=== PATIENT | male | born 1975 | race Two or more races ===

== ENCOUNTER 2016-11-02 10:54 | Day surgery (SDC) | payer OTHER ==
[2016-10-30 12:59] VITALS: BMI 33.2
[2016-11-02 12:31] VITALS: TEMP 98.7
[2016-11-02] MEDS ORDERED: LEVOFLOXACIN 500 MG IVPB 100 ML IVPB ONE (16:21)
[2016-11-02] MEDS ORDERED: MIDAZOLAM HCL 2 MG/2 ML SINGLE DOSE VIAL ONE (16:22)
[2016-11-02] MEDS ORDERED: LEVOFLOXACIN 500 MG PREMIX BAG IVPB ONE (16:30)
--- NOTE | 2016-11-02 17:41 | OP ---
Operative Note - Note: Operative Date: 11/02/16 Pre-Operative Diagnosis: right renal stone Operation: right eswl Findings: 8 mm right lower pole stone Post-Operative Diagnosis: Same as Pre-op Surgeon: Mynor Borrego Anesthesia: General Operative Report Dictated: Yes
[2016-11-02 18:22] VITALS: BP 131/80; PULSE 57
--- NOTE | 2016-11-03 15:48 | OP ---
DATE OF OPERATION: 11/02/2016 PREOPERATIVE DIAGNOSIS: Right renal stone. POSTOPERATIVE DIAGNOSIS: Right renal stone. PROCEDURE: Right extracorporeal shock-wave lithotripsy. ATTENDING: Harry Sanchez MD ANESTHESIA: General. OPERATION: The patient was brought in the operating room, placed in supine position on the operating room table. Ultrasonography and fluoroscopy were performed. An 8-mm right lower pole renal stone was identified. General anesthesia was then administered as well as Levaquin intravenously with 500 mg administered. At this point, extracorporeal shock-wave lithotripsy was performed under real-time ultrasonography and fluoroscopy; 2500 impulses at 20 joules of power were administered to the stone, with excellent fragmentation. No complications were noted. The disposition of the patient was to recovery room. HARRY SANCHEZ M.D. [id number]
== END 2016-11-02 18:20 | disposition home or self-care (01) ==
LOC: JASU-SURG 10:54
PROVIDERS: ATTEND Urology
PROC: 0TF3XZZ Fragmentation in Right Kidney Pelvis, External Approach (ICD-10-PCS; principal; 2016-11-02 14:45)
DX: N20.0 Calculus of kidney (principal)

== ENCOUNTER 2017-04-05 09:55 | Day surgery (SDC) | payer OTHER ==
[2017-02-17 14:54] VITALS: BMI 33.2
[~2017-04-05 09:55] MED LIST: LEVOFLOXACIN 500 MG PREMIX BAG IVPB ONE
[2017-04-05] MEDS ORDERED: DEXAMETHASONE SOD PHOSPHATE 4 MG/1 ML VIAL ONE (12:41)
[2017-04-05] MEDS ORDERED: MIDAZOLAM HCL 2 MG/2 ML SINGLE DOSE VIAL ONE (12:42)
[2017-04-05] MEDS ORDERED: LEVOFLOXACIN 500 MG PREMIX BAG IVPB ONE ×2 (13:10→13:20)
[2017-04-05] MEDS ORDERED: LEVOFLOXACIN 500 MG IVPB 100 ML IVPB ONE (13:22)
--- NOTE | 2017-04-05 13:50 | OP ---
Operative Note - Note: Operative Date: 04/05/17 Pre-Operative Diagnosis: left renal stone Operation: left eswl Findings: 4.5 mm left renal stone (lower pole) Post-Operative Diagnosis: Same as Pre-op Surgeon: Mynor Borrego Anesthesia: General, Fractional
[2017-04-05] MEDS ORDERED: oxyCODONE HCL 5 MG TABLET PO PRN (14:13)
[2017-04-05] MEDS ORDERED: ONDANSETRON 4 MG/2 ML VIAL IVPUSH PRN (14:13)
[2017-04-05] MEDS ORDERED: LACTATED RINGERS SOLUTION 1,000 ML IV SCH (14:15)
[2017-04-05 15:59] VITALS: TEMP 97.7
[2017-04-05 17:08] VITALS: BP 130/88; PULSE 72
--- NOTE | 2017-04-06 08:06 | OP ---
DATE OF OPERATION: 04/05/2017 PREOPERATIVE DIAGNOSIS: Left renal stone. POSTOPERATIVE DIAGNOSIS: Left renal stone. PROCEDURE: Left extracorporeal shock wave lithotripsy. ATTENDING: Harry Sanchez MD ANESTHESIA: Fractional. DESCRIPTION OF OPERATION: The patient was brought in the operating room, placed in supine position on the operating room table. Ultrasonography and fluoroscopy were performed. A 4.5-mm left lower pole stone was identified. Fractional anesthesia and antibiotics were administered. Extracorporeal shock wave lithotripsy was then started; 2500 impulses at 18 joules of power were administered to the stone with excellent fragmentation of the stone under real-time ultrasonography and fluoroscopy. No complications were noted. The disposition of the patient was to the recovery room. HARRY SANCHEZ M.D. [id number]
== END 2017-04-05 17:10 | disposition home or self-care (01) ==
LOC: JASU-SURG 09:55
PROVIDERS: ATTEND Urology
PROC: 0TF4XZZ Fragmentation in Left Kidney Pelvis, External Approach (ICD-10-PCS; principal; 2017-04-05 11:45)
DX: N20.0 Calculus of kidney (principal)
CPT/HCPCS: 94760

== ENCOUNTER 2017-06-23 13:08 | Emergency (ER) | payer OTHER ==
[2017-06-23 13:15] VITALS: BP 139/92; PULSE 72; TEMP 98.5; BMI 29.0
[2017-06-23] MEDS ORDERED: KETOROLAC TROMETHAMINE 30 MG/1 ML VIAL IVPUSH ONE (14:11)
[2017-06-23] MEDS ORDERED: SODIUM CHLORIDE 1,000 ML IV STA (14:11)
[2017-06-23] MEDS ORDERED: KETOROLAC TROMETHAMINE 30 MG/1 ML VIAL ONE (14:12)
--- NOTE | 2017-06-23 14:49 | PDOC ---
History of Present Illness - General Chief Complaint: Pain, Acute Stated Complaint: FEVER, BACK PAIN Time Seen by Provider: 06/23/17 14:41 History Source: Patient, Family - History of Present Illness Initial Comments: 06/23/17 14:55 Patient is a 41 y.o. male with a PMH of CAD (s/p stent in 10 years previous) , HTN and multiple episodes of nephrolithiasis who presents to the ED c/o 1 week h/o of progressively increasing RUQ/RLQ + R flank pain. Patient is unable to identify if the pain started in his R flank or R abdomen. Patient endorse dysuria but denies hematuria, scrotal/testicular pain, subjective fever, chest pain, shortness of breath. Patient has been tolerating PO intake however notes decreased appetite. NKDA Surgical: RLE stent (> 10 years previous in ), Cholecystectomy PMD: Dr. Abraham Past History - Past Medical History Allergies/Adverse Reactions: Allergies Allergy/AdvReac Type Severity Reaction Status Date / Time No Known Allergies Allergy Verified 06/23/17 13:10 Home Medications: Ambulatory Orders Valsartan [Diovan] 160 mg PO DAILY #20 tablet 12/04/15 Amlodipine Besylate [Norvasc -] 5 mg PO DAILY 10/30/16 Anemia: No Asthma: No Cancer: No Cardiac Disorders: No CVA: No COPD: No CHF: No Dementia: No Diabetes: No GI Disorders: Yes (gerd) Disorders: Yes (KIDNEY STONES) HTN: Yes Hypercholesterolemia: Yes Liver Disease: No Seizures: No Thyroid Disease: No - Surgical History Abdominal Surgery: Yes Cholecystectomy: Yes - Suicide/Smoking/Psychosocial Hx Smoking Status: No Smoking History: Never smoked Have you smoked in the past 12 months: No Number of Cigarettes Smoked Daily: 0 Hx Alcohol Use: No Drug/Substance Use Hx: No Substance Use Type: None Hx Substance Use Treatment: No Review of Systems - Review of Systems Constitutional: No: Chills, Fever Respiratory: No: Shortness of Breath Cardiac (ROS): No: Chest Pain ABD/GI: No: Constipated, Diarrhea, Nausea, Vomiting : Yes: Dysuria, Flank Pain. No: Hematuria, Testicular Pain *Physical Exam - Vital Signs Last Vital Signs Temp Pulse Resp BP Pulse Ox 98.5 F 72 18 139/92 99 06/23/17 13:08 06/23/17 13:08 06/23/17 13:08 06/23/17 13:08 06/23/17 14:18 - Physical Exam Neck: positive: Trachea midline, Supple Respiratory/Chest: positive: Lungs Clear Cardiovascular: positive: S1, S2 Gastrointestinal/Abdominal: positive: Normal Bowel Sounds, Soft, Guarding, Rebound. negative: Hernia, Mass Musculoskeletal: negative: CVA Tenderness Extremity: positive: Normal Capillary Refill, Normal Inspection Integumentary: positive: Normal Color, Dry, Warm Neurologic: positive: Fully Oriented, Alert ED Treatment Course - LABORATORY CBC & Chemistry Diagram: 06/23/17 15:00 06/23/17 15:00 - Medications Given in the ED: ED Medications Discontinued Medications Generic Name Dose Route Start Last Admin Trade Name Wilmer PRN Reason Stop Dose Admin Ketorolac Tromethamine 30 mg 06/23/17 14:11 06/23/17 14:15 Toradol Injection - IVPUSH 06/23/17 14:12 30 mg ONCE ONE Administration Medical Decision Making - Medical Decision Making 06/23/17 15:12 Patient is a 41 y.o. male with a PMH of HTN, CAD and nephrolithiasis who presents to our ED with 1 week h/o of progressively worsening R flank + RUQ/RLQ pain. Initial clinical suspicion for nephrolithiasis vs. acute abdomen. Low clinical suspicion for AAA (normotensive, age < 65). PLAN: 1. CBC/CMP/Type & Screen, PT/INR 2. UA 3. CT Scan w/contrast Pain control w/Toradol. Reasess. 06/23/17 21:05 CT shows no nephrolithiasis or hydronephrosis. Patient symptomatically improved. Patient discharged home with return precautions and instruction to increase fluid intake. At time of discharge patient ambulatory, improved and affirmed understanding of his discharge instructions. *DC/Admit/Observation/Transfer Diagnosis at time of Disposition: Kidney stones - Discharge Dispostion Disposition: HOME Condition at time of disposition: Good - Referrals - Patient Instructions Printed Discharge Instructions: DI for Kidney Stones Additional Instructions: Please increase your fluid intake to 2-3 L of water daily. You can use ibuprofen for your pain. Please return to the Emergency Department for any new/ worsening/concerning symptoms. - Post Discharge Activity
[2017-06-23 15:34] LABS: BASO % 1.1 % (0-2.0); EOS % 3.7 % (0-4.5); HEMATOCRIT 45.5 % (35.4-49); HEMOGLOBIN 15.2 GM/dL (11.7-16.9); LYMPH % 30.6 % (8-40); MCH 31.2 pg (25.7-33.7); MCHC 33.5 g/dl (32.0-35.9); MEAN CELL VOLUME 93.3 fl (80-96); MEAN PLT VOLUME 9.9 fl (7.5-11.1); MONO % 6.4 % (3.8-10.2); NEUT % 58.2 % (42.8-82.8); PLATELET COUNT 195 K/MM3 (134-434); RBC 4.88 M/mm3 (4.00-5.60); RDW 12.6 % (11.9-15.9); WHITE BLOOD COUNT 6.8 K/mm3 (4.0-10.0)
[2017-06-23 15:38] LABS: URINE APPEARANCE CLEAR; URINE BILIRUBIN NEGATIVE (NEGATIVE); URINE BLOOD 1+ (NEGATIVE); URINE COLOR LTYELLOW; URINE GLUCOSE (UA) NEGATIVE (NEGATIVE); URINE KETONE NEGATIVE (NEGATIVE); URINE LEUK ESTERASE NEGATIVE (NEGATIVE); URINE NITRITE NEGATIVE (NEGATIVE); URINE PROTEIN NEGATIVE (NEGATIVE); URINE UROBILINOGEN NEGATIVE mg/dL (0.2-1.0)
--- NOTE | 2017-06-23 16:01 | PDOC ---
Attending Attestation - Resident Resident Name: LitDelmi - ED Attending Attestation I have performed the following: I have examined & evaluated the patient, The case was reviewed & discussed with the resident, I agree w/resident's findings & plan, Exceptions are as noted - HPI HPI: 06/23/17 15:40 41 M with h/o CAD, HTN, kidney stones, presenting with 1 week of R flank pain radiating to his R groin. Pt states that it feels similar to his prior kidney stones, but the pain is more intense. Pt also endorses subjective fevers but did not measure a temp. Pt states that the pain is currently in his RLQ. Endorses nausea and vomiting. Denies diarrhea/constipation. - Physicial Exam PE: 06/23/17 16:01 "GENERAL: Awake, alert, and fully oriented, in no acute distress HEAD: No signs of trauma EYES: PERRLA, EOMI, sclera anicteric, conjunctiva clear ENT: Auricles normal inspection, hearing grossly normal, nares patent, oropharynx clear without exudates. Moist mucosa NECK: Nontender, no stepoffs, Normal ROM, supple, no lymphadenopathy, JVD, or masses LUNGS: Breath sounds equal, clear to auscultation bilaterally. No wheezes, and no crackles HEART: Regular rate and rhythm, normal S1 and S2, no murmurs, rubs or gallops ABDOMEN: + RLQ TTP, no rebound/guarding. + R CVAT EXTREMITIES: Normal range of motion, no edema. No clubbing or cyanosis. No cords, erythema, or tenderness NEUROLOGICAL: Cranial nerves II through XII intact. 5/5 strength and sensation in all extremities, Normal speech, normal gait SKIN: Warm, Dry, normal turgor, no rashes or lesions noted. " - Medical Decision Making 06/23/17 16:02 41 M with R flank pain radiating to R groin, with subjective fevers x 1 week. Likely nephrolithiasis. Possible infected stone, though pt with no fever here. - Labs, UA - CTAP - IVF, toradol 06/23/17 17:29 UA with 1+ blood. CTAP without any evidence of acute pathology. Pt reassessed - now feels significantly better. Possible passed stone. Pt tolerating PO, vitals normal. Clinically stable for DC. Pt instructed to follow up with urology for blood in urine. He expresses understanding that this could represent a kidney stone but may also be a sign of malignancy. I discussed the physical exam findings, ancillary test results and final diagnoses with the patient. I answered all of the patient's questions. The patient was satisfied with the care received and felt comfortable with the discharge plan and treatment plan. The patient agrees to follow up with the primary care physician within 24-72 hours.
[2017-06-23 16:15] LABS: ALBUMIN 3.9 g/dl (3.4-5.0); ANION GAP 6 (8-16); BILIRUBIN,TOTAL 1.2 mg/dL (0.2-1.0); BLOOD UREA NITROGEN 9 mg/dL (7-18); CALCIUM 8.5 mg/dL (8.5-10.1); CHLORIDE 108 mmol/L (98-107); CO2 29 mmol/L (21-32); CREATININE 1.1 mg/dL (0.7-1.3); GLUCOSE,RANDOM 80 mg/dL (74-106); POTASSIUM 3.7 mmol/L (3.5-5.1); SGOT/AST 18 U/L (15-37); SGPT/ALT 37 U/L (12-78); SODIUM 143 mmol/L (136-145); TOT PROT 7.4 g/dl (6.4-8.2)
[2017-06-23 16:16] LABS: ALK PHOS 91 U/L (45-117)
[2017-06-23 17:04] LABS: URINE MUCUS RARE
== END 2017-06-23 18:01 | disposition home or self-care (01) ==
LOC: JER 13:08
PROC: 3E0333Z Introduction of Anti-inflammatory into Peripheral Vein, Percutaneous Approach (ICD-10-PCS; principal; 2017-06-23)
DX: N20.0 Calculus of kidney (principal); Z87.442 Personal history of urinary calculi
CPT/HCPCS: 36415; 74177-TC; 80053; 81003; 81015; 85025; 99283-25

== ENCOUNTER 2017-08-12 09:03 | Emergency (ER) | payer OTHER ==
[2017-08-12 09:17] VITALS: BMI 34.1
--- NOTE | 2017-08-12 09:25 | PDOC ---
History of Present Illness - General History Source: Patient Exam Limitations: No Limitations - History of Present Illness Initial Comments: 08/12/17 09:46 The patient is a 42 year old male with a significant PMH of HTN who presents to the emergency department with two weeks of intermittent chest pain. The patient states the chest pain radiates to the back and is worse during the night time. The patient reports the chest pain does not worsen when walking or working. The patient endorses some non-bloody diarrhea and non-bloody, non bilious vomiting four days ago that has since resolves. The patient denies dizziness, diaphoresis, fever or nausea. The patient has a positive family history for CAD. The patient denies shortness of breath, headache and dizziness. Denies fever, chills, nausea, and constipation. Denies dysuria, frequency, urgency and hematuria. Allergies: NKA Past surgical history: None reported Social history: No reported alcohol, drug, or cigarette use. <Nicole Cifuentes - Last Filed: 08/12/17 12:40> <Yuri Wheatley - Last Filed: 08/12/17 12:58> - General Chief Complaint: Chest Pain Stated Complaint: CHEST PAIN Time Seen by Provider: 08/12/17 09:24 Past History <Nicole Cifuentes - Last Filed: 08/12/17 12:40> - Past Medical History Anemia: No Asthma: No Cancer: No Cardiac Disorders: No CVA: No COPD: No CHF: No Dementia: No Diabetes: No GI Disorders: Yes (gerd) Disorders: Yes (KIDNEY STONES) HTN: Yes Hypercholesterolemia: Yes Liver Disease: No Seizures: No Thyroid Disease: No - Surgical History Abdominal Surgery: Yes Cholecystectomy: Yes - Suicide/Smoking/Psychosocial Hx Smoking Status: No Smoking History: Never smoked Have you smoked in the past 12 months: No Number of Cigarettes Smoked Daily: 0 Information on smoking cessation initiated: No Hx Alcohol Use: No Drug/Substance Use Hx: No Substance Use Type: None Hx Substance Use Treatment: No <Yuri Wheatley - Last Filed: 08/12/17 12:58> - Past Medical History Allergies/Adverse Reactions: Allergies Allergy/AdvReac Type Severity Reaction Status Date / Time No Known Allergies Allergy Verified 08/12/17 09:17 Home Medications: Ambulatory Orders Valsartan [Diovan] 160 mg PO DAILY #20 tablet 12/04/15 Amlodipine Besylate [Norvasc -] 5 mg PO DAILY 10/30/16 Review of Systems - Review of Systems Able to Perform ROS?: Yes Comments:: 08/12/17 09:48 ROS: A complete review of 10 out of 10 review of systems is taken and is negative apart from what is previously mentioned below and in the HPI. <Nicole Cifuentes - Last Filed: 08/12/17 12:40> *Physical Exam - Vital Signs Last Vital Signs Temp Pulse Resp BP Pulse Ox 97.6 F 67 18 146/98 100 08/12/17 09:11 08/12/17 09:11 08/12/17 09:11 08/12/17 09:11 08/12/17 09:35 - Physical Exam Comments: 08/12/17 09:48 Vitals: Triage vital signs reviewed General Appearance: No acute distress, well nourished, well developed Head: Atraumatic Eyes: Pupils equal reactive round, extraocular movement intact Neck: Supple; No nuchal rigidity Cardiac: Regular rate and rhythm, no murmurs, no rubs, no gallops Lungs: Clear to auscultation bilateral, good air movement bilaterally Abdomen: Soft, nondistended, normal bowel sounds, nontender to palpation Back: (+) Reproducible muscular pain. Extremities: Full range of motion to all extremities, no cyanosis, clubbing, or edema Skin: Warm and dry, no rashes or lesions, no rash, no petechiae Neuro: AOX3; Cranial Nerves 2-12 grossly intact, Strength intact to all extremities, Sensation intact to all extremities, gait normal Psych: Normal mood, normal affect <Nicole Cifuentes - Last Filed: 08/12/17 12:40> - Vital Signs Last Vital Signs Temp Pulse Resp BP Pulse Ox 97.6 F 67 18 146/98 100 08/12/17 09:11 08/12/17 09:11 08/12/17 09:11 08/12/17 09:11 08/12/17 09:11 <Yuri Wheatley - Last Filed: 08/12/17 12:58> Heart Score/ECG Review - History History: Slightly suspicious - Electrocardiogram EKG: Normal - Age Age: </= 45 - Risk Factors Risk Factors Heart Score: Yes Hx Hypertension, Yes Positive family hx of cardiac disease - Troponin Troponin: </= normal limit - ECG Impressions Comment:: 08/12/17 10:14 EKG performed at 9:09 AM. Rate of 68 bpm normal sinus rhythm CA interval 148, QRS 88, QTC 399, no ST elevations no T-wave inversions Interpreted by me. <Yuri Wheatley - Last Filed: 08/12/17 12:58> ED Treatment Course - LABORATORY CBC & Chemistry Diagram: 08/12/17 09:25 08/12/17 09:25 - ADDITIONAL ORDERS Additional order review: 08/12/17 09:25 RBC 4.56 MCV 93.5 MCHC 34.0 RDW 12.4 MPV 9.0 Neutrophils % 51.8 Lymphocytes % 33.7 Monocytes % 6.6 Eosinophils % 6.7 H D Basophils % 1.2 <Nicole Cifuentes - Last Filed: 08/12/17 12:40> - LABORATORY CBC & Chemistry Diagram: 08/12/17 09:25 08/12/17 09:25 <Yuri Wheatley - Last Filed: 08/12/17 12:58> Medical Decision Making - Medical Decision Making Plan: Labs: Trop Cardio: EKG Radiology: Chest XR portable, Shoulder (LEFT) XR <Nicole Cifuentes - Last Filed: 08/12/17 12:40> - Medical Decision Making 08/12/17 10:17 42 years old past medical history significant for hypertension, positive family history of CAD heart score 1 presents to the ED with 2 week history of left chest left shoulder discomfort. Patient describes the pain as achy it is worse at night nonexertional no associated diaphoresis vomiting radiation Differential diagnosis includes rotator cuff injury, shoulder injury, musculoskeletal injury less likely ACS, less likely PE. Patient negative by PERC criteria We'll check labs EKG troponin observe reassess. Troponin negative 2 x-rays are no acute findings heart score 1 risk of MACE less than 0.8% Facial follow-up with her primary care provider orthopedics this week Findings, need for follow-up and strict return instructions discussed with patient. <Yuri Wheatley - Last Filed: 08/12/17 12:58> *DC/Admit/Observation/Transfer - Attestations Scribe Attestion: 08/12/17 09:49 Documentation prepared by Nicole Cifuentes, acting as medical intern for Yuri Wheatley MD. <Nicole Cifuentes - Last Filed: 08/12/17 12:40> - Discharge Dispostion Admit: No <Yuri Wheatley - Last Filed: 08/12/17 12:58> Diagnosis at time of Disposition: Shoulder pain Qualifiers: Chronicity: acute Laterality: left Qualified Code(s): M25.512 - Pain in left shoulder Chest pain Qualifiers: Chest pain type: unspecified Qualified Code(s): R07.9 - Chest pain, unspecified - Patient Instructions Printed Discharge Instructions: DI for Atypical Chest Pain, DI for Shoulder Pain Additional Instructions: Take [id number] Aleve as directed on package and. Follow-up with your doctor this week. Follow-up with Dr. Marino orthopedics this week. Return to the emergency department for any severe worsening symptoms or for any concerns.
[2017-08-12 09:36] LABS: BASO % 1.2 % (0-2.0); EOS % 6.7 % (0-4.5); HEMATOCRIT 42.6 % (35.4-49); HEMOGLOBIN 14.5 GM/dL (11.7-16.9); LYMPH % 33.7 % (8-40); MCH 31.8 pg (25.7-33.7); MEAN CELL VOLUME 93.5 fl (80-96); MONO % 6.6 % (3.8-10.2); NEUT % 51.8 % (42.8-82.8); PLATELET COUNT 183 K/MM3 (134-434); RBC 4.56 M/mm3 (4.00-5.60); RDW 12.4 % (11.9-15.9); WHITE BLOOD COUNT 7.4 K/mm3 (4.0-10.0)
[2017-08-12 10:03] LABS: ALBUMIN 3.8 g/dl (3.4-5.0); ANION GAP 8 (8-16); BILIRUBIN,TOTAL 0.9 mg/dL (0.2-1.0); BLOOD UREA NITROGEN 8 mg/dL (7-18); CALCIUM 8.4 mg/dL (8.5-10.1); CHLORIDE 105 mmol/L (98-107); CO2 27 mmol/L (21-32); CREATININE 1.1 mg/dL (0.7-1.3); GLUCOSE,RANDOM 89 mg/dL (74-106); POTASSIUM 3.9 mmol/L (3.5-5.1); SGOT/AST 10 U/L (15-37); SGPT/ALT 22 U/L (12-78); SODIUM 140 mmol/L (136-145)
[2017-08-12 10:06] LABS: ALK PHOS 84 U/L (45-117)
[2017-08-12 13:33] VITALS: BP 128/78; PULSE 72; TEMP 98.2
--- NOTE | 2017-08-12 16:34 | EKG ---
Test Reason : Blood Pressure : / mmHG Vent. Rate : 068 BPM Atrial Rate : 068 BPM P-R Int : 148 ms QRS Dur : 088 ms QT Int : 376 ms P-R-T Axes : 060 015 027 degrees QTc Int : 399 ms NORMAL SINUS RHYTHM POSSIBLE LEFT ATRIAL ENLARGEMENT BORDERLINE ECG WHEN COMPARED WITH ECG OF 04-DEC-2015 14:56, NO SIGNIFICANT CHANGE WAS FOUND Confirmed by ARIANNA SHRE MD ([id number]) on 08/12/2017 4:34:20 PM Referred By: Confirmed By:ARIANNA SHER MD
== END 2017-08-12 13:36 | disposition home or self-care (01) ==
LOC: JER 09:03
DX: R07.9 Chest pain, unspecified (principal); I10 Essential (primary) hypertension; E78.00 Pure hypercholesterolemia, unspecified; K21.9 Gastro-esophageal reflux disease without esophagitis; Z87.442 Personal history of urinary calculi
CPT/HCPCS: 36415; 71045-TC-FY; 73030-TC-LT-FY; 80053; 84484; 85025; 93005; 93010; 99284-25